=== PATIENT | female | born 1975 | race Caucasian/White ===

== ENCOUNTER → 2017-11-27 | Outpatient (REF) | payer MEDICAID ==
[~2017-11-27] MED LIST: HYDR-319 PO; HYDR-4309 PO; METH-280 PO; NAPR-724 PO
[2017-11-27 20:12] LABS: PLATELET COUNT, AUTOMATED 271 K/uL (150-450)
== END ==
PROVIDERS: ATTEND Nurse Practitioner Family
DX: R07.9 Chest pain, unspecified (principal)
CPT/HCPCS: 82040; 82247; 82310; 82374; 82435; 82565; 82947; 84075; 84132; 84155; 84295; 84450; 84460; 84484; 84520; 85025